=== PATIENT | female | born 1985 | race Caucasian/White ===

== ENCOUNTER 2024-05-08 09:35 | Emergency (ER) | payer MEDICAID ==
[~2024-05-08] VITALS: Ht 160 cm; Wt 128.0 kg
[2024-05-08 09:41] VITALS: O2SAT 97
[2024-05-08 10:34] LABS: CLARITY URINE CLOUDY (CLEAR); COLOR URINE YELLOW (YELLOW); GLUCOSE URINE NEGATIVE (NEGATIVE); KETONES URINE NEGATIVE (NEGATIVE); LEUKOCYTE ESTERASE URINE NEGATIVE (NEGATIVE); NITRITE URINE NEGATIVE (NEGATIVE); OCCULT BLOOD URINE NEGATIVE (NEGATIVE); PROTEIN URINE NEGATIVE (NEGATIVE); SPECIFIC GRAVITY URINE 1.023 (1.005-1.030)
[2024-05-08] MEDS: SODIUM CHLORIDE 0.9% 1,000 ML IV ONE (10:45)
[2024-05-08] MEDS: CEFTRIAXONE SODIUM 1G VIAL IM ONE (11:25)
[2024-05-08 11:32] LABS: BASOPHILS % 0.5 % (0.0-2.0); EOSINOPHILS % 1.9 % (0.0-5.0); HEMATOCRIT. 38.7 % (36.0-48.0); HEMOGLOBIN. 12.8 g/dL (12.0-16.0); LYMPHOCYTES % 20.9 % (20.0-50.0); MEAN CORPUSCULAR HEMOGLOBIN 30.6 pg (28.0-32.0); MEAN CORPUSCULAR HGB CONC 33.2 g/dL (31.0-37.0); MEAN CORPUSCULAR VOLUME 92.3 fL (81.0-99.0); MEAN PLATELET VOLUME 10.3 fl (7.4-10.4); MONOCYTES % 4.9 % (2.0-8.0); NEUTROPHILS % 71.8 % (40.0-76.0); PLATELET 253 x1000/uL (130-400); RED CELL DISTRIBUTION WIDTH 14.2 % (11.6-14.6); WHITE BLOOD COUNT 13.7 x1000/uL (4.5-11.0)
[2024-05-08 11:45] LABS: RBC URINE NONE SEEN /hpf (0-2); SQUAMOUS EPITHELIAL CELL URINE 2+ /lpf (RARE/1+); WBC URINE 0-2 /hpf (0-2)
[2024-05-08 11:46] LABS: BACTERIA URINE NONE SEEN
[2024-05-08 11:48] LABS: CARBON DIOXIDE 24 mEq/L (21-32); CHLORIDE 104 mEq/L (98-107); POTASSIUM 4.2 mEq/L (3.5-5.1); SODIUM 138 mEq/L (136-145)
[2024-05-08 11:49] LABS: CALCIUM 8.9 mg/dL (8.7-10.4)
[2024-05-08 11:53] LABS: CREATININE 0.7 mg/dL (0.6-1.0); GLUCOSE 100 mg/dL (70-105)
[2024-05-08 11:54] LABS: UREA NITROGEN BLOOD 13 mg/dL (9-23)
[2024-05-08 11:55] LABS: ALANINE AMINOTRANSFERASE 15 IU/L (10-49); ALBUMIN 3.8 g/dL (3.2-4.8); ASPARTATE AMINOTRANSFERASE 12 IU/L (<34); HCG SCREEN NEGATIVE
[2024-05-08 11:56] LABS: BILIRUBIN TOTAL 0.4 mg/dL (0.1-1.0); PROTEIN TOTAL 7.1 g/dL (6.0-8.3)
[2024-05-08 12:08] LABS: BILIRUBIN DIRECT < 0.1 mg/dL (<=3.0)
[2024-05-08] MEDS: KETOROLAC 30MG/ML VIAL IV ONE (14:36)
[2024-05-08] MEDS ORDERED: DOXY100T28 MT (15:55)
[2024-05-08] MEDS ORDERED: METR-167 MT (15:55)
[2024-05-08] MEDS ORDERED: IBUP-2030 MT (15:55)
[2024-05-08 16:10] VITALS: BP 117/67; PULSE 69; RESP 18; TEMP 36.8; O2SAT 99
[2024-05-10 17:07] LABS: CHLAMYDIA TRACHOMATIS NAA Negative (Negative); NEISSERIA GONORRHOEAE NAA Negative (Negative)
== END 2024-05-08 16:10 | disposition home or self-care (01) ==
LOC: ER 09:35
DX: N76.0 Acute vaginitis (principal)
CPT/HCPCS: 99285; 74176; 96374; 96361; 76830; 76856; 87491; 87591; 80076; 80048; 81003; 84703; 83690; 85025; 87210; 36415; 96372; J1885; J0696; J7030